=== PATIENT | male | born 2000 | race Asian ===

== ENCOUNTER 2024-03-14 15:19 | Inpatient (IN) ==
--- OUTSIDE RECORDS SUMMARY | 2024-03-14 15:25 | External Medical Summary | Continuity of Care Document ---
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 [address] [place] [address] [place] [id number] [place] [phone] Encounter Diagnosis Depressed mood(Discharge Diagnosis) - 01/10/24 Headache(Discharge Diagnosis) - 01/10/24 OCD (obsessive compulsive disorder)(Discharge Diagnosis) - 01/10/24 Asthma(Discharge Diagnosis) - 01/10/24 Body mass index [BMI] 20.0-20.9, adult(Discharge Diagnosis) - 01/10/24 Fever(Discharge Diagnosis) - 01/10/24 Discharge Disposition: Home or Self Care Attending Physician: MD Parsons Dongsheng Allergies, Adverse Reactions, Alerts Substance Criticality Severity Reaction Reaction Severity Status Cats Active Dogs Active Trees Active Pollen Active Dust Active Grass Active Mold Active Assessment and Plan Extracted from: Title:Office Visit Note Author:MD Parsons Dongsh eng Date:01/10/24 1.Depressed mood STATUS: Chronic stable: Chronic uncontrolled: x Acute uncomplicated: Acute illness with systemic symptoms: Undiagnosed new problems with uncertain prognosis: Chronic illnesses with exacerbation, progression, or side effects of treatment: 1 acute complicated injury: DATA: Review of prior external note(s) from each unique source: Review of the result(s) of each unique test: cmp tsh Ordering of each unique test: Assessment requiring independent historian(s): GOAL: Reduce symptoms PLAN: PHQ9=8; GAD7=7 today.zoloft and prn hydroxyzine - did not work and had sexual side effect too. continue mirtazapine. increasewellbutrinto 150mg XL as ordered. Referred to psychiatry. continue therapy. Call Crisis at [phone] if SI and go to ER.Exercise. 2.Headache STATUS: Chronic stable: x Chronic uncontrolled: Acute uncomplicated: Acute illness with systemic symptoms: Undiagnosed new problems with uncertain prognosis: Chronic illnesses with exacerbation, progression, or side effects of treatment: 1 acute complicated injury: DATA: Review of prior external note(s) from each unique source: Review of the result(s) of each unique test: lyme, esr,vitD Ordering of each unique test: Assessment requiring independent historian(s): GOAL: resolution PLAN: much improved 3.OCD (obsessive compulsive disorder) STATUS: Chronic wellcontrolled DATA: Reviewed labs tsh GOAL: Reduce symptoms PLAN: continue therapy. f/u psychology. Exercise. 4.Asthma STATUS: Chronicwell controlled DATA: Reviewed labs tsh GOAL: Maintain stability PLAN: pulmicort and albuterol - notusing now. Has a dog. prevent URI's. f/u allergy 5.Fever STATUS: Chronic stable: resolved Chronic uncontrolled: Acute uncomplicated: Acute illness with systemic symptoms: Undiagnosed new problems with uncertain prognosis: Chronic illnesses with exacerbation, progression, or side effects of treatment: 1 acute complicated injury: DATA: Review of prior external note(s) from each unique source: Review of the result(s) of each unique test: Ordering of each unique test: Assessment requiring independent historian(s): GOAL:Resolution PLAN: take med daily. continue to monitor Sx call prn.f/u 1 mo Immunizations Given and Recorded Vaccine Date Status Refusal Reason influenza virus vaccine, inactivated 12/23/23 Girish rded Medications benzoyl peroxide 2.5% topical liquid Start: 07/26/22 1:06:00 PM EDT, 1 appl, topical, Daily, Disp# 240 mL, Refills: 2, Pharmacy: [facility] Start Date: 07/26/22 Status: Ordered doxycycline hyclate 50 mg oral capsule Start: 11/18/23 12:24:00 PM EDT, 1 cap, PO, Daily, Disp# 90 cap, Refills: 1, may take with food to minimize abdominal discomfort. avoid sun., Pharmacy: [facility] Start Date: 11/18/23 Stop Date: 3/8/25 Status: Ordered fluticasone 50 mcg/inh nasal spray Start: 06/27/15 3:57:00 PM EDT, 2 spray, each nostril, Daily Start Date: 06/27/15 Status: Ordered mirtazapine 15 mg oral tablet Start: 01/06/24 10:48:00 AM EDT, 1 tab, PO, qhs, Disp# 90 tab, X 90 day, Refills: 1, Stop: 07/04/24 10:48:00 AM EDT, Pharmacy: [facility] Start Date: 01/06/24 Stop Date: 07/04/24 Status: Ordered Proventil HFA 90 mcg/inh MDI Start: 06/27/15 3:57:00 PM EDT, 2 puff, inhaled, qid, PRN: as needed for wheezing Start Date: 06/27/15 Status: Ordered tretinoin 0.05% topical cream Start: 11/18/23 12:25:00 PM EDT, 1 appl, topical, qhs, Disp# 45 g, Refills: 0, Pharmacy: [facility] Start Date: 11/18/23 Status: Ordered triamcinolone 0.1% topical cream Start: 07/26/22 1:06:00 PM EDT, 1 appl, topical, bid, Disp# 80 g, Refills: 2, apply to hands, Pharmacy: [facility] Start Date: 07/26/22 Status: Ordered Wellbutrin XL 150 mg/24 hours oral tablet, extended release Start: 01/10/24 1:19:00 PM EDT, 1 tab, PO, Daily, Disp# 30 tab, Refills: 3, do not crush or chew, Pharmacy: [id number] Start Date: 01/10/24 Stop Date: 05/09/24 Status: Ordered ZyrTEC Start: 06/27/15 3:58:00 PM EDT, 10 mg =, PO, Daily Start Date: 06/27/15 Status: Ordered Mental Status 01/10/24 Barriers to Learning one year None evide nt Mandatory Health Literacy Documentation Yes Health Literacy Communication Barriers N ever Primary Language [place] Citizen Problem List Condition Confirmation Course Effective Dates Status Health St [facility]us Informant Acne vulgaris Confirmed Active Asthma Confirmed Active Elevated bilirubin Confirmed Active Depressed mood Confirmed Active Headache Confirmed Active OCD (obsessive compulsive disorder) Confirmed Active Diagnosis Diagnosis Type Effective Dates Health Status Clinical Service Informant Body mass index [BMI] 20.0-20.9, adult Discharge Diagnosis 01/10/24 Non-Specified Fever Discharge Diagnosis 01/10/24 Non-Specified OCD (obsessive compulsive disorder) Discharge Diagnosis 01/10/24 Non-Specified Asthma Discharge Diagnosis 01/10/24 Non-Specified Headache Discharge Diagnosis 01/10/24 Non-Specified Depressed mood Discharge Diagnosis 01/10/24 Non-Specified Procedures Procedure Date Related Diagnosis Body Site Status US EXAM SCROTUM 1 03/26/22 [facility] ed Tooth extraction, multiple 08/2019 Completed None Completed 1Impression: 1. Normal bilateral testes 2. Trace slightly complex right hydrocele 3 Small left sided varicocele 4 small epididymal head cysts Vital Signs Most recent to oldest [Reference Range]: 1 Height 172 cm (01/10/24 1:04 PM) Patient Weight 60.5 kg (01/10/24 1:04 PM) Body Mass Index 20.45 kg/m2 (01/10/24 1:04 PM) Heart Rate 78 bpm (01/10/24 1:04 PM) Respiratory Rate 18 br/min (01/10/24 1:04 PM) Blood Pressure 138/78mmHg (01/10/24 1:04 PM) Cuff Pulse Pressure 60 mmHg (01/10/24 1:04 PM) Social History Social History Type Response Smoking Status Never smoked cigaret meliza Sex Male Sex Representation Male (finding) FCM Outpt Note * MD Issa, Tl: PERFORM Event Display: FCM Outpt Note Authored Date: Chief Complaint 1 month f/u. History of Present Illness MDD: on meds - but forgets wellbutrin some days.feeling somewhat worse - more depressed. still has passing SI ideation half of the days and didsearching on how to "do it" on internet - once a week. The fear of how it will impact other people stops him from carrying it out. Was better then a bitworse x 2 wks. He had a thought of driving hiscar off the road 2 wks ago related to school stress. OCD: same, "well managed" BELTRAN: rare now. drinking water helps. sleeps 7-8 hrs a night. sleeps well. asthma: well controlled. rare little alcohol. NOMJ or drugs. Had temp 100.4 2 days ago. he felt warm. no other URI Sx. home covid neg. Review of Systems No fever/chills. No respiratory symptoms. No chest pain/shortness of breath. No nausea/vomiting. No abdominal pain. No change with bowels. No urinary symptoms. No rash. No joint pain. Other systems reviewed and are neg. Physical Exam Vitals & Measurements HR:78(Monitored) RR:18 BP:138/78 SpO2:98% HT:172cm WT:60.5kg WT:60.500kg(Dosing) BMI:20.45 PHQ2 Data(Data Documented on:01/10/2024 12:57) Emotional health assessment NEGATIVE PHQ-9 Data(Data Documented on:01/10/2024 12:58) PHQ-9 Severity Score:8 Thoughts that you would be better off or of hurting yourself in some way?More than half the days Depression Risk:Elevated Suicide Risk Screening (Florence/as): [place] Suicide Risk:High Risk General Anxiety Disorder Screening: HAVEN-7 Score:7 HAVEN-7 Problem Severity:Not at all General: No acute distress. Nontoxic. Head:Normocephalic, Atraumatic. Eyes:Pupils are equal, round Normal conjunctiva. Neck:Supple, Non-tender, No thyromegaly Respiratory:Lungs are clear to auscultation, Respirations non-labored, Breath sounds equal AFIA. Cardiovascular:Normal rate, Regular rhythm, No murmur, Rubs, gallops. Gastrointestinal:Soft, Non-tender, Non-distended, Normal bowel sounds. Neurologic:Alert, Oriented, No focal deficits. Psychiatric:Cooperative, Appropriate mood & affect. Assessment/Plan 1.Depressed mood STATUS: Chronic stable: Chronic uncontrolled: x Acute uncomplicated: Acute illness with systemic symptoms: Undiagnosed new problems with uncertain prognosis: Chronic illnesses with exacerbation, progression, or side effects of treatment: 1 acute complicated injury: DATA: Review of prior external note(s) from each unique source: Review of the result(s) of each unique test: cmp tsh Ordering of each unique test: Assessment requiring independent historian(s): GOAL: Reduce symptoms PLAN: PHQ9=8; GAD7=7 today.zoloft and prn hydroxyzine- did not work and had sexual side effect too. continue mirtazapine. increasewellbutrinto 150mg XL as ordered. Referred to psychiatry. continue therapy. Call Crisis at [phone] if SI and go to ER.Exercise. 2.Headache STATUS: Chronic stable: x Chronic uncontrolled: Acute uncomplicated: Acute illness with systemic symptoms: Undiagnosed new problems with uncertain prognosis: Chronic illnesses with exacerbation, progression, or side effects of treatment: 1 acute complicated injury: DATA: Review of prior external note(s) from each unique source: Review of the result(s) of each unique test: lyme, esr,vitD Ordering of each unique test: Assessment requiring independent historian(s): GOAL: resolution PLAN: much improved 3.OCD (obsessive compulsive disorder) STATUS: Chronic wellcontrolled DATA: Reviewed labs tsh GOAL: Reduce symptoms PLAN: continue therapy. f/u psychology. Exercise. 4.Asthma STATUS: Chronicwell controlled DATA: Reviewed labs tsh GOAL: Maintain stability PLAN:pulmicort and albuterol - notusing now. Has a dog. prevent URI's. f/u allergy 5.Fever STATUS: Chronic stable: resolved Chronic uncontrolled: Acute uncomplicated: Acute illness with systemic symptoms: Undiagnosed new problems with uncertain prognosis: Chronic illnesses with exacerbation, progression, or side effects of treatment: 1 acute complicated injury: DATA: Review of prior external note(s) from each unique source: Review of the result(s) of each unique test: Ordering of each unique test: Assessment requiring independent historian(s): GOAL:Resolution PLAN: take med daily. continue to monitor Sx call prn.f/u 1 mo Problem List/Past Medical History Ongoing Acne vulgaris Asthma Depressed mood Elevated bilirubin Headache OCD (obsessive compulsive disorder) Resolved Vertigo Procedure/Surgical History US EXAM SCROTUM| Service Date: 03/26/2022Tooth extraction, multiple| Service Date: 08/2019None Medications albuterol(Proventil HFA 90 mcg/inh MDI), 2 puff, inhaled, qid, PRN benzoyl peroxide topical(benzoyl peroxide 2.5% topical liquid), 1 appl, topical, Daily, 2 refills buPROPion(Wellbutrin XL 150 mg/24 hours oral tablet, extended release), 150 mg= 1 tab, PO, Daily, 3refills cetirizine(ZyrTEC), 10 mg, PO, Daily doxycycline(doxycycline hyclate 50 mg oral capsule), 50 mg= 1 cap, PO, Daily, 1 refills fluticasone nasal(fluticasone 50 mcg/inh nasal spray), 2 spray, each nostril, Daily mirtazapine(mirtazapine 15 mg oral tablet), 15 mg= 1 tab, PO, qhs, 1 refills tretinoin topical(tretinoin 0.05% topical cream), 1 appl, topical, qhs triamcinolone topical(triamcinolone 0.1% topical cream), 1 appl, topical, bid, 2 refills Allergies Cats Dogs Dust Grass Mold Pollen Trees Social History Smoking Status Never smoked cigarettes Alcohol - Denies Alcohol Use Substance Abuse - Denies Substance Abuse Tobacco - Denies Tobacco Use Family History Health Status Family Member(s) Mother: History is unknown Father: History is unknown Immunizations Vaccine Date Status influenza virus vaccine, inactivated 12/23/2023 Recorded Recommendations Health Maintenance Pending(in the next year) Due Adult COVID-19 Vaccination due01/10/24Unknown Frequency Adult Social Determinants of Health Screening due01/10/24Unknown Frequency Adult Tdap/Td Vaccine due01/10/24Unknown Frequency Lipid Screening due01/10/24Unknown Frequency Pneumococcal Vaccine Adults and Adolescents with Chronic Illness due01/10/24One-time only Due In Future Adult Influenza Vaccine not due until09/07/24and every 1year Satisfied(in the past 1 year) Satisfied Adult Influenza Vaccine on12/23/23.Satisfied by CHAYO Sanz Vanessa T Body Mass Index on01/10/24.Satisfied by CHAYO Sanz Vanessa T Depression Follow Up Plan on01/10/24.Satisfied by CHAYO Sanz Vanessa T Electronic Signature on File Electronically Reviewed/Signed by: Tl Parsons MD Author Signature Dt/Tm:01/10/2024 01:35 PM Department of Family Medicine DJ Patient Care team information Care Team Personnel Name: MD Parsons Dongsheng Position: Physician - Family Med Member Role: Primary Care Provider Address: [address] [place] [address] Care Team Related Persons Name: UMBERTO RIVERA Name: MARILIN RIVERA
--- OUTSIDE RECORDS SUMMARY | 2024-03-14 15:25 | External Medical Summary | Continuity of Care Document ---
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 Name Role Phone Tl Parsons Primary Care Physician [phone] [id number] Date[facility]s): 02/12/24 - 02/12/24 [facility] [address] [place] [address] [place] [phone] Encounter Diagnosis Body mass index [BMI] 20.0-20.9, adult(Discharge Diagnosis) - 02/12/24 Depressed mood(Discharge Diagnosis) - 02/12/24 Discharge Disposition: Home or Self Care Attending Physician: MD Parsons Dongsheng Allergies, Adverse Reactions, Alerts Substance Criticality Severity Reaction Reaction Severity Status Cats Active Dogs Active Trees Active Pollen Active Dust Active Grass Active Mold Active Assessment and Plan Extracted from: Title:Office Visit Note Author:MD Parsons Dongsh eng Date:02/12/24 1.Depressed mood STATUS: Chronic stable: Chronic uncontrolled: x Acute uncomplicated: Acute illness with systemic symptoms: Undiagnosed new problems with uncertain prognosis: Chronic illnesses with exacerbation, progression, or side effects of treatment: 1 acute complicated injury: DATA: Review of prior external note(s) from each unique source: Review of the result(s) of each unique test: cmp.cbc.tsh Ordering of each unique test: Assessment requiring independent historian(s): GOAL: Reduce symptoms PLAN: PHQ9=9; GAD7=4 today.Zoloft and prn hydroxyzine - did not work and had sexual side effect too. continue mirtazapine. increasewellbutrin XL to 3000mgas ordered. Referred to psychiatry - advised to call for appt [facility]. continue weekly therapy. Call Crisis at [phone] if SI and go to ER.Exercise. call prn.f/u 1 mo Immunizations Given and Recorded Vaccine Date Status Refusal Reason influenza virus vaccine, inactivated 12/23/23 Girish rded Medications benzoyl peroxide 2.5% topical liquid Start: 07/26/22 1:06:00 PM EDT, 1 appl, topical, Daily, Disp# 240 mL, Refills: 2, Pharmacy: [facility] Start Date: 07/26/22 Status: Ordered doxycycline hyclate 50 mg oral capsule Start: 11/18/23 12:24:00 PM EDT, 1 cap, PO, Daily, Disp# 90 cap, Refills: 1, may take with food to minimize abdominal discomfort. avoid sun., Pharmacy: [facility] Start Date: 11/18/23 Stop Date: 05/16/24 Status: Ordered fluticasone 50 mcg/inh nasal spray Start: 06/27/15 3:57:00 PM EDT, 2 spray, each nostril, Daily Start Date: 06/27/15 Status: Ordered mirtazapine 15 mg oral tablet Start: 01/06/24 10:48:00 AM EDT, 1 tab, PO, qhs, Disp# 90 tab, X 90 day, Refills: 1, Stop: 07/04/24 10:48:00 AM EDT, Pharmacy: [facility] Start Date: 01/06/24 Stop Date: 07/04/24 Status: Ordered Proventil HFA 90 mcg/inh MDI Start: 06/27/15 3:57:00 PM EDT, 2 puff, inhaled, qid, PRN: as needed for wheezing Start Date: 06/27/15 Status: Ordered tretinoin 0.05% topical cream Start: 11/18/23 12:25:00 PM EDT, 1 appl, topical, qhs, Disp# 45 g, Refills: 0, Pharmacy: [facility] Start Date: 11/18/23 Status: Ordered triamcinolone 0.1% topical cream Start: 07/26/22 1:06:00 PM EDT, 1 appl, topical, bid, Disp# 80 g, Refills: 2, apply to hands, Pharmacy: [facility] Start Date: 07/26/22 Status: Ordered Wellbutrin XL 300 mg/24 hours oral tablet, extended release Start: 02/12/24 10:33:00 AM EST, 1 tab, PO, Daily, Disp# 30 tab, Refills: 4, Pharmacy: [id number] Start Date: 02/12/24 Stop Date: 07/11/24 Status: Ordered ZyrTEC Start: 06/27/15 3:58:00 PM EDT, 10 mg =, PO, Daily Start Date: 06/27/15 Status: Ordered Mental Status 02/12/24 Barriers to Learning one year None evide nt Problem List Condition Confirmation Course Effective Dates Status Health St atus Informant Acne vulgaris Confirmed Active Asthma Confirmed Active Elevated bilirubin Confirmed Active Depressed mood Confirmed Active Headache Confirmed Active OCD (obsessive compulsive disorder) Confirmed Active Diagnosis Diagnosis Type Effective Dates Health Status Cl inical Service Informant Depressed mood Discharge Diagnosis 02/12/24 Non-Specified Body mass index [BMI] 20.0-20.9, adult Discharge Diagnosis 02/12/24 Non-Specified Procedures Procedure Date Related Diagnosis Body Site Status US EXAM SCROTUM 1 03/26/22 Complet ed Tooth extraction, multiple 08/2019 Completed None Completed 1Impression: 1. Normal bilateral testes 2. Trace slightly complex right hydrocele 3 Small left sided varicocele 4 small epididymal head cysts Vital Signs Most recent to oldest [Reference Range]: 1 Height 172.5 cm (02/12/24 10:09 AM) Patient Weight 60.8 kg (02/12/24 10:09 AM) Body Mass Index 20.43 kg/m2 (02/12/24 10:09 AM) Temperature [36.5-37.9 DegC] 36.8 DegC (02/12/24 10:09 AM) Heart Rate 81 bpm (02/12/24 10:09 AM) Respiratory Rate 16 br/min (02/12/24 10:09 AM) Blood Pressure 122/74mmHg (02/12/24 10:09 AM) Social History Social History Type Response Smoking Status Never smoked cigaret meliza Sex Male Sex Representation Male (finding) FCM Outpt Note * MD Issa, Tl: PERFORM Event Display: FCM Outpt Note Authored Date: Chief Complaint med check ( psych) History of Present Illness MDD: on meds.feeling moredepressed. no change with sleep and anxiety. He keeps forgetting to call for psychiatry appt.no HI. Increased SI frequency - daily. 20min to a couple of hours a day with SI. No plan. no drugs. rare alcohol 5 times a wk exercise. Review of Systems No fever/chills. No headache. No respiratory symptoms. No chest pain/shortness of breath. No nausea/vomiting. No abdominal pain. No change with bowels. No urinary symptoms. No rash. No joint pain.Other systems reviewed and are neg. Physical Exam Vitals & Measurements T:36.8C HR:81(Monitored) RR:16 BP:122/74 SpO2:99% HT:172.5cm WT:60.8kg WT:60.800kg(Dosing) BMI:20.43 PHQ2 Data(Data Documented on:02/12/2024 10:11) Emotional health assessment POSITIVE PHQ-9 Data(Data Documented on:02/12/2024 10:12) PHQ-9 Severity Score:9 Thoughts that you would be better off or of hurting yourself in some way?Nearly every day Depression Risk:Elevated General Anxiety Disorder Screening: HAVEN-7 Score:4 HAVEN-7 Problem Severity:Somewhat Difficult General: No acute distress. Nontoxic. Head:Normocephalic, Atraumatic. Neck:Supple, Non-tender, No thyromegaly Respiratory:Lungs are clear [...] of the result(s) of each unique test: cmp.cbc.tsh Ordering of each unique test: Assessment requiring independent historian(s): GOAL: Reduce symptoms PLAN: PHQ9=9; GAD7=4 today.Zoloft and prn hydroxyzine- did not work and had sexual side effect too. continue mirtazapine. increasewellbutrin XL to 3000mgas ordered. Referred to psychiatry - advised to call for appt [facility]. continue weekly therapy. Call Crisis at [phone] if SI and go to ER.Exercise. call prn.f/u 1 mo Problem List/Past Medical History Ongoing Acne vulgaris Asthma Depressed mood Elevated bilirubin Headache OCD (obsessive compulsive disorder) Resolved Vertigo Procedure/Surgical History US EXAM SCROTUM| Service Date: 03/26/2022Tooth extraction, multiple| Service Date: 08/2019None Medications albuterol(Proventil HFA 90 mcg/inh MDI), 2 puff, inhaled, qid, PRN benzoyl peroxide topical(benzoyl peroxide 2.5% topical liquid), 1 appl, topical, Daily, 2 refills buPROPion(Wellbutrin XL 300 mg/24 hours oral tablet, extended release), 300 mg= 1 tab, PO, Daily, 4refills cetirizine(ZyrTEC), 10 mg, PO, Daily doxycycline(doxycycline hyclate [...] the next year) Due Adult COVID-19 Vaccination due02/12/24Unknown Frequency Adult Social Determinants of Health Screening due02/12/24Unknown Frequency Adult Tdap/Td Vaccine due02/12/24Unknown Frequency Lipid Screening due02/12/24Unknown Frequency Pneumococcal Vaccine Adults and Adolescents with Chronic Illness due02/12/24One-time only Due In Future Adult Influenza Vaccine not due until09/07/24and every 1year Satisfied(in the past 1 year) Satisfied Adult Influenza Vaccine on12/23/23.Satisfied by CHAYO Sanz Vanessa T Body Mass Index on02/12/24.Satisfied by CHAYO Mariscal Kathryn Depression Follow Up Plan on02/12/24.Satisfied by CHAYO Mariscal Kathryn Electronic Signature on File Electronically Reviewed/Signed by: Tl Parsons MD Author Signature Dt/Tm:02/12/2024 10:41 AM Department of Family Medicine DJ Patient Care team information Care Team Personnel Name: MD Parsons Dongsheng Position: Physician - Family Med Member Role: Primary Care Provider Address: [address] [place] [address] [place] Care Team Related Persons Name: UMBERTO RIVERA Name: MARILIN RIVERA"
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
[2024-03-14 16:18] LABS: Appearance Urine Clear (Clear); Bilirubin Urine Negative (Negative); Blood Urine Negative (Negative); Color Urine Yellow; Glucose Urine UA Negative (Negative); Ketones Urine Negative (Negative); Leukocyte Esterase Urine Negative (Negative); Nitrite Urine Negative (Negative); Protein Urine Negative (Negative); Specific Gravity Urine 1.023 (1.000-1.030); Urobilinogen Urine Negative (Negative)
[2024-03-14 16:42] LABS: Basophils # (auto) 0.05 K/uL (0.00-0.20); Basophils % (auto) 0.9 %; Eosinophils # (auto) 0.17 K/uL (0.00-0.50); Hematocrit (blood only) 42.8 % (42.0-52.0); Hemoglobin 15.2 g/dl (14.0-18.0); Immature Granulocytes # (auto) 0.02 K/uL (0.01-0.20); Immature Granulocytes % (auto) 0.4 %; Lymphocytes # (auto) 1.39 K/uL (1.20-3.40); Lymphocytes % (auto) 24.9 %; Mean Corpuscular Hemoglobin 32.2 pg (25.0-34.0); Mean Corpuscular Hgb Conc 35.5 g/dL (32.0-36.0); Mean Corpuscular Volume 90.7 fL (80.0-100.0); Mean Platelet Volume 10.1 fL (9.4-12.4); Monocytes # (auto) 0.29 K/uL (0.11-0.59); Monocytes % (auto) 5.2 %; Neutrophils # (auto) 3.67 K/uL (1.40-6.50); Neutrophils % (auto) 65.6 %; Platelet Count 293 K/uL (130-400); RDW Coefficient of Variation 11.6 % (11.5-14.5); RDW Standard Deviation 38.3 fL (36.4-46.3); Red Blood Count 4.72 M/uL (4.70-6.10); White Blood Count 5.59 K/ul (4.8-10.8)
--- NOTE | 2024-03-14 16:56 | Emergency Department Note ---
Impression & Plan Suicidal ideations, Depression ED Provider Note NAME: KALEB RIVERA AGE: 23 SEX: M : 2000 ARRIVES VIA: Walk-In INFORMANT: Patient ED PROVIDER(S): Robel Good DO CHIEF COMPLAINT: Suicidal ideations HPI: Patient is a 23-year-old male who presents to the ER with a past medical history of depression which started this summer. Patient notes that within the past 1 to 2 months patient has been having suicidal thoughts. Patient has, with several plans on how to kill himself which include driving a car offroad and crashing it, suffocation, drowning and stabbing himself. He told this to a friend who encouraged him to discuss this with family and he did and consequently brought him in here today. Patient denies any auditory or visual hallucinations. Denies any belly pain, nausea, vomiting or diarrhea. No dysuria, urgency or frequency. No upper respiratory symptoms. ADDITIONAL HISTORY OBTAINED: Per HPI Chronic Medical/Social Conditions Affecting Care: Per HPI PAST MEDICAL HISTORY:See Below PAST SURGICAL HISTORY:See Below FAMILY HISTORY:See Below SOCIAL HISTORY:See Below HOME MEDICATIONS:See Below ALLERGIES:See Below VITALS:See Below PHYSICAL EXAMINATION: GENERAL: Sitting up in bed, alert, well appearing, well nourished, no distress, non-toxic EYE EXAM: normal conjunctiva. OROPHARYNX: mucous membranes are moist LUNGS: Clear to auscultation. Normal chest wall mechanics HEART: no murmurs, S1 normal and S2 normal ABDOMEN: abdomen soft, non-tender, normo-active bowel sounds, no masses, no rebound or guarding. UPPER EXTREMITIES: upper extremities are grossly normal. LOWER EXTREMITIES: No pitting edema. NEURO EXAM: Normal sensorium, cranial nerves II-XII grossly intact, normal speech, no gross weakness of arms, no gross weakness of legs. PSYCH: Admits to suicidal ideations with multiple plans. MEDICAL DECISION MAKING: Patient is a 23-year-old male who presents ER with multiple plans to kill himself and he notes that he wants to do this prior to going back to school. He was brought in by family. He is willing to come in on 201. Labs were obtained and showed no significant leukocytosis or anemia. BMP along with LFTs bilirubin was unremarkable. UA was clean. Urine tox was positive for ecstasy. Alcohol was negative. COVID was negative. Discussed with our psychiatric care managers who made the referral to [facility] on 201 for admission for suicidal ideations with a plan. Currently awaiting evaluation by Tamir Johnson. Pt was signed out to Dr. Briggs pending evaluation by Tamir johnson for admission on 201 for SI with multiple plans. Consults/Care Managements Discussions: Per MDM Triage Nursing notes reviewed. Limited review of prior medical records performed Vital Signs: reviewed and remarkable for htn Differential diagnosis: Mood disorder, infection, hypoglycemia, electrolyte abnormalities, cardiac sources, intracerebral event, toxicologic, trauma, neurologic, as well as other pathologies. ER treatment provided: See below Diagnostics interpreted by me include EKG and cardiac monitoring as listed below: -ECG: none -Laboratory studies:Interpreted by me as stated above in MDM and shown below. Imaging studies: Xrays: As interpreted by me:none CTs show: none Procedures:none Critical Care: None Past Med/Surg History Problem List (Updated 03/14/24 @ 17:00 by Robel Good DO) Depression (Acute) Suicidal ideations (Acute) Acne Sebaceous cyst of right axilla Medical History Acne Allergic rhinitis Asthma Surgical History No history of previous surgery Social History Smoking Status: Never smoker Hx Alcohol Use: No Hx Substance Use: No Preferred Language: Vietnamese Visual Impairment: No Limitations Hearing Ability: Normal marital status: Single Current Living Situation: Family Current Living Situation Comment: Mom, Dad and a hypo-allergetic dog Feels Safe at Home: Yes Childhood Exposure to Second-Hand Smoke: No Dental Care, Regularly: Yes Seatbelt Use: always Sunscreen Use: Yes Gender Identity: Male Allergies Allergies Allergy/AdvReac Type Severity Reaction Status Date / Time animal dander Allergy Severe Verified 12/04/23 10:54 grass pollen Allergy Severe Verified 12/04/23 10:54 mold Allergy Severe Verified 12/04/23 10:54 tree and shrub pollen Allergy Severe Verified 12/04/23 10:54 Home Meds Home Medications Medication Instructions Recorded Confirmed bupropion HCl 300 mg 24 hr tablet, 300 mg PO DAILY 03/14/24 03/14/24 extended release cetirizine 10 mg capsule 10 mg PO DAILY PRN Allergy Symptoms 03/14/24 03/14/24 doxycycline hyclate 50 mg capsule 50 mg PO DAILY 03/14/24 03/14/24 mirtazapine 15 mg tablet 15 mg PO HS 03/14/24 03/14/24 tretinoin 0.05 % topical cream 1 applic topical DAILY 03/14/24 03/14/24 Results & Data (ED) Vital Signs Vital Signs - 24 hr 03/14/24 15:32 03/14/24 17:30 Temperature 36.5 C Temperature Source Temporal Artery Scan Pulse Rate 96 H Pulse Rate [Finger] 81 Pulse Rhythm Regular Pulse Strength Normal Respiratory Rate 18 16 Respiratory Effort / Characteristics Non-Labored Spontaneous Non-Labored Spontaneous Respiratory Depth Normal Normal Respiratory Pattern Regular Blood Pressure 151/82 H Blood Pressure [Left Arm] 137/79 Blood Pressure Mean 105 Blood Pressure Mean [Left Arm] 98 Pulse Oximetry 99 Oxygen Delivery Method Room Air Sepsis New/Unexplained Change in Mental Status N/A Sepsis Action Taken by Nursing No Action Required Laboratory Data 03/14/24 16:18 03/14/24 16:18 Lab Results 03/14/24 03/14/24 03/14/24 Range/Units 16:10 16:18 Unknown WBC 5.59 (4.8-10.8) K/ul RBC 4.72 (4.70-6.10) M/uL Hgb 15.2 (14.0-18.0) g/dl Hct 42.8 (42.0-52.0) % MCV 90.7 (80.0-100.0) fL MCH 32.2 (25.0-34.0) pg MCHC 35.5 (32.0-36.0) g/dL RDW Std Deviation 38.3 (36.4-46.3) fL RDW Coeff of Sharif 11.6 (11.5-14.5) % Plt Count 293 (130-400) K/uL MPV 10.1 (9.4-12.4) fL Immature Gran % (Auto) 0.4 % Neut % (Auto) 65.6 % Lymph % (Auto) 24.9 % [place] % (Auto) 5.2 % Eos % (Auto) 3.0 % Baso % (Auto) 0.9 % Neut # (Auto) 3.67 (1.40-6.50) K/uL Lymph # (Auto) 1.39 (1.20-3.40) K/uL [place] # (Auto) 0.29 (0.11-0.59) K/uL Eos # (Auto) 0.17 (0.00-0.50) K/uL Baso # (Auto) 0.05 (0.00-0.20) K/uL Immature Gran # (Auto) 0.02 (0.01-0.20) K/uL Sodium 137 (136-145) mmol/L Potassium 4.1 (3.5-5.1) mmol/L Chloride 103 (98-107) mmol/L Carbon Dioxide 28 (21-32) mmol/L Anion Gap 6 (3-11) BUN 22 (6-23) mg/dl Creatinine 0.82 (0.6-1.4) mg/dl Est Cr Clr Drug Dosing 121.7 ml/min eGFR 127.37 BUN/Creatinine Ratio 26.8 H (10-20) Glucose 127 H (70-99(Fasting)) mg/dl Calcium 9.2 (8.6-10.3) mg/dl Total Bilirubin 0.7 (0.2-1.0) mg/dl AST 15 (13-39) U/L ALT 11 (7-52) U/L Alkaline Phosphatase 75 (34-104) U/L Total Protein 7.2 (6.0-8.3) gm/dl Albumin 4.6 (3.4-5.0) gm/dl Globulin 2.6 (2.5-4.0) gm/dl Albumin/Globulin Ratio 1.8 (0.9-2) TSH 0.912 (0.300-4.500) uIu/ml Urine Color Yellow Urine Appearance Clear (Clear) Urine pH 7.0 (4.5-7.5) Ur Specific [place] 1.023 (1.000-1.030) Urine Protein Negative (Negative) Urine Glucose (UA) Negative (Negative) Urine Ketones Negative (Negative) Urine Blood Negative (Negative) Urine Nitrite Negative (Negative) Urine Bilirubin Negative (Negative) Urine Urobilinogen Negative (Negative) Ur Leukocyte Esterase Negative (Negative) Salicylates < 3.0 L (3.0-30) mg/dl Urine Opiates Screen Neg (Neg) Ur Methadone, Qual Neg (Neg) Urine Fentanyl Screen Neg (Neg) Acetaminophen < 3 L (10-30) ug/ml Urine Barbiturates Neg (Neg) Ur Phencyclidine (PCP) Neg (Neg) U Amphetamin/Meth Scrn Neg (Neg) MDMA (Ecstasy) Screen Pos H (Neg) U Benzodiazepines Scrn Neg (Neg) Ur Cocaine Metabolite Neg (Neg) U Marijuana (THC) Screen Neg (Neg) Ethyl Alcohol mg/dL < 10.0 (<10.0) mg/dl SARS-CoV-2, RNA, NAAT NEGATIVE (NEGATIVE) Discharge Plan Visit Data Chief Complaint: Mental Health Evaluation Stated Complaint: DEPRESSION ED Provider: Gladys Briggs Discharge Problem: Suicidal ideations, Depression Forms Stand Alone Forms: [facility], Suicide Prevention Resources Prescriptions Prescriptions: No Action doxycycline hyclate 50 mg capsule 50 mg PO DAILY tretinoin 0.05 % cream 1 applic TOPICAL DAILY mirtazapine 15 mg tablet 15 mg PO HS bupropion HCl 300 mg tablet extended release 24 hr 300 mg PO DAILY cetirizine 10 mg Capsule 10 mg PO DAILY PRN (Reason: Allergy Symptoms) Referrals Referrals: Tl Parsons [Primary Care Provider] - Discharge Problem: Depression Qualifiers: Depression Type: unspecified Qualified Code(s): F32.A - Depression, unspecified
[2024-03-14 16:57] LABS: Albumin Globulin Ratio 1.8 (0.9-2); Albumin Level 4.6 gm/dl (3.4-5.0); BUN Creatinine Ratio 26.8 (10-20); Bilirubin,Total 0.7 mg/dl (0.2-1.0); Calcium 9.2 mg/dl (8.6-10.3); Creatinine Clr Calc Pharmacy 121.7 ml/min; Globulin 2.6 gm/dl (2.5-4.0); Potassium 4.1 mmol/L (3.5-5.1); Total Protein 7.2 gm/dl (6.0-8.3)
[2024-03-14 17:06] LABS: Amphetamines+Metham, Urine Neg (Neg); Barbiturates, Urine Neg (Neg); Benzodiazepine, Urine Neg (Neg); Cocaine, Urine Neg (Neg); Fentanyl, Urine Neg (Neg); MDMA (Ecstacy), Urine Pos (Neg); Marijuana, Urine Neg (Neg); Methadone, Urine Neg (Neg); Opiate, Urine Neg (Neg); Phencyclidine, Urine Neg (Neg)
[2024-03-14 17:07] LABS: Acetaminophen < 3 ug/ml (10-30); Salicylate < 3.0 mg/dl (3.0-30)
[2024-03-14 17:11] LABS: Thyroid Stimulating Hormone 0.912 uIu/ml (0.300-4.500)
--- NOTE | 2024-03-14 19:15 | Emergency Department Note ---
ED Visit Note Date and Time: 03/14/20241914 Interval History: Sign out received from Dr. Good who reviewed details of the encounter. Patient was pending evaluation by staff from [facility] Summary: patient was accepted to [facility] on a voluntary admission .
[2024-03-14] MEDS ORDERED: ALUMINUM/MAGNESIUM SUSP 30 ML UDC PO PRN (20:46)
[2024-03-14] MEDS ORDERED: MAGNESIUM HYDROXIDE SUSP 30 ML UDC PO PRN (20:46)
[2024-03-14] MEDS ORDERED: ACETAMINOPHEN 325 MG TAB PO PRN (20:46)
[2024-03-14] MEDS ORDERED: BISMUTH SUBSALICYLATE 262 MG CHEW PO PRN (20:46)
[2024-03-14] MEDS ORDERED: SODIUM CHLORIDE 0.65% NA SOLN 45 ML (OCEAN) PRN (20:46)
[2024-03-14] MEDS ORDERED: hydrOXYzine HCl 25 MG TAB PO PRN ×2 (20:46)
[2024-03-14] MEDS: MIRTAZAPINE TAB 15 MG TAB PO SCH (22:44)
[2024-03-15 06:30] VITALS: RESP 16
--- NOTE | 2024-03-15 09:22 | History & Physical ---
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 Diagnostically consistent with major depressive disorder vs atypical depression as well as generalized anxiety disorder, OCD and ASD. Also wonder about possibility for cluster B traits vs BPD component. Discussed medication treatment options in detail including SSRI, SNRI, antipsychotics, clonidine,guanfacine. Discussed risks, benefits and alternatives. Patient would like to start and consented to Abilify for depression augmentation and off label use for OCD and anxiety. Reviewed side effects including but not limited to: movement (TD, NMS), cardiac (QTc prolongation), and metabolic (stroke, insulin resistance) and necessity for fasting lipid and glucose labwork and AIMS done with score of 0. He wants to continue with mirtazapine, reviewed side effects including but not limited to sedation/increased appetite, black box warning for SI. Discontinuation of Wellb utrin due to concern this could activating/worsening anxiety/OCD. MNPR-due to difficulty with interruption with routines, significant discomfort and panic attacks with transitions/changes Overall I spent a total of 75 minutes for this admission including review of chart records, review of labwork, direct evaluation of the patient, counseling the patient, ordering medication, risk assessment, discussion with the psychiatric liason RN and documentation in the electronic health record. (1) Depression: Depression Type: unspecified Qualified Code(s): F32.A - Depression, unspecified (2) Suicidal ideations: (3) Generalized anxiety disorder with panic attacks: (4) Autism spectrum disorder: (5) Obsessive compulsive disorder: Plan 03/15/2024: The patient was admitted to the [facility] ([facility] inpatient mental health unit) on q15 min checks (behavioral with suicide precautions) for safety. The patient will participate in group, recreational, and milieu therapies and will be offered additional individual and family sessions as clinically appropriate. -Medications: * Continue mirtazapine 15mg HS * Start abilify 2.5mg daily * Discontinue Wellbutrin * Vistaril prn for anxiety -Labwork: * HBA1c * Fasting Lipid Panel * Vit D * Vit B12 -Hollis BPD screening Inventory Assets Strengths: supportive relationships, willing to get treatment Needs: safety and stabilization, medication adjustment, additional coping skills, increased outpatient services Suicide Risk Level Suicide Risk Level: High-Moderate (q15 min suicide checks) (SI with plan and intent prior to hospitalization but denies plan for hospital,feels safe in the hospital, feels able to ask for support) Risk Factors Assessment Male: Yes : No Do You Have Access To A Gun?: No Health Problems: No Mental Health Diagnoses: Yes Substance Use Disorders: No Previous Attempt: No Previous Psychiatric Hospitalization: No Hopelessness: Yes Protective Factors Assessment Employed: Yes Stable Relationships: Yes Supportive Family: Yes Good Rapport with Provider: Yes (therapist and PCP) Psychiatric History Identifying Data KALEB RIVERA is a 23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 Chief Complaint "The one thing I had control over I've now given it to other people". History of Present Illness Miky presents for psychiatric admission for worsening depression and SI with multiple plans in the context of multiple psychosocial stressors including academics, unrequited feelings for his best friend, grief over the loss of this friendship, feeling excluded from his friend group, and experiencing barriers and obstacles within the LGBTQ community [place]. His depression has been "snowballing" and he started to "contemplate suicide and formulate a plan to do it but I figured it would be sometime around now and the beginning of the semester". He was visiting a friend a few days ago and shared his suicidal plan and his friend encouraged him to share this with his parents. Yesterday he was seen at the local Crisis center and they recommended he come to the hospital. He reports that his depression worsened a few months ago, leading to suicidal ideation and the formulation of a plan. He states that his suicidal thoughts were very intense yesterday morning after disclosing his potential plans, as he felt he had lost control over the one thing he had control over. Today, he reports his suicidal thoughts are a little less intense compared to yesterday. He identifies the onset of his depression in mid-to-late summer when his best friend got a girlfriend, when he'd had romantic feelings for him. Losing his ability to rely on his friend as his primary support also added to his stress/grief process and seemed to set off the depression. He was then coping a little better but new stressors including feeling excluded by his friends, COVID infection and then he struggled to manage other factors including academic stress. He can also get anxiety about his friends appearance changing due to his sensory anxieties which distracts from his ability to be in the moment. Additi onally he feels impact of having multiple marginalized identities including LGBTQ and racial/ethnic minority and challenges this presents in meeting romantic partners. He endorses depressive symptoms including anhedonia (struggling to enjoy social situations), decreased motivation, self-guilt, hopelessness. He describes his depression as sometimes feeling like high-functioning depression, with the ability to still engage in academic work and social situations if he pushes himself and that he had been able to do this somewhat due to coping with distress by thinking about his plan and intent to soon. SI has been occurring over the last few months but intensifying to the point of having an intent to not live past "the first quarter of 2024". He hadn't finalized a method/plan because he wanted to avoid a means that could "fail" or cause pain. He had been researching means including helium asphyxiation, self-drowning, stabbing himself, jumping from a high place or driving his car off a hill or self poisoning (didn't seem as appealing because "there were too many factors that could go wrong or be very uncomfortable") into a tree (not into anyone else, would not have wanted to hurt anyone else). He also endorses symptoms of anxiety including generalized worries, shakiness, easily overwhelmed and panic attacks especially when a friend's appearance has changed/transitions that he fears may occur in the future. He reports experiencing sensory anxiety related to his Asperger's and sensory integration disorder, which has intensified and negatively impacted his ability to enjoy social situations. He notes that SI and having a plan and intent as an "escape plan" impacted some of his ability to socialize and rally recently as he wanted to leave his friends and family with "momentos" and good memories. He notes the idea of dying brought him comfort and aishwarya because "it's a way to stop the pain and never have anxiety again or worry again". He notes that "thinking about suicide was at times bringing about aishwarya and the depression tells me maybe you don't want help". He identifies that "I lack a lot of the concrete coping mechanisms". He endorses OCD symptoms including borderline cases of delusions related to his OCD. He is currently prescribed psychiatric medications of Wellbutrin XL 300mg daily (has been on this at higher dose for about a month, overall for three months; seems to help with mood at times "lower lows but also higher highs" and seems to emplify the emotions he has) and mirtazapine 15mg HS (since November, hard to say if it's helping or not but it has been helping him sleep). Psychiatric ROS notable for no current nor history of symptoms of kaiser, PTSD, nor eating disorder. Notes at times his sensory sensitivities have felt like almost a delusion at times and sometimes "borderline" psychosis from exacerbation of his OCD fixation and beliefs such as worrying he's hit something in his car. History of self-harm by scratching himself and continues to punching himself and been doing this several times per week. He describes feeling that he's recently been in a "dissociative state" with "nothing or empty" emotions with the exception of anxiety and struggles to be present with friends and this brings about self-guilt. He reports a high sex drive that interferes with his sleep. Target symptoms identified as: -anxiety -OCD -depression Past Psychiatric History Current Psychiatric Diagnosis: Aspergers, OCD, Anxiety, Depression Outpatient Services: therapy with [facility], PCP manages his psychiatric medications Previous Psych Admissions: none Do You Have Access To A Gun?: No History of Previous Suicide Attempt: No Past Medication Trials: -sertraline 50mg but had sexual dysfunction which made it intolerable -Vistaril Past Head Trauma/Neuro History History of Concussion/Seizure: No Allergies Allergy/AdvReac Type Severity Reaction Status Date / Time animal dander Allergy Severe Verified 12/04/23 10:54 grass pollen Allergy Severe Verified 12/04/23 10:54 mold Allergy Severe Verified 12/04/23 10:54 tree and shrub pollen Allergy Severe Verified 12/04/23 10:54 Home Medications Medication Instructions Recorded Confirmed Type bupropion HCl 300 mg 24 hr tablet, 300 mg PO DAILY 03/14/24 03/14/24 History extended release cetirizine 10 mg capsule 10 mg PO DAILY PRN Allergy Symptoms 03/14/24 03/14/24 History doxycycline hyclate 50 mg capsule 50 mg PO DAILY 03/14/24 03/14/24 History mirtazapine 15 mg tablet 15 mg PO HS 03/14/24 03/14/24 History tretinoin 0.05 % topical cream 1 applic topical DAILY 03/14/24 03/14/24 History Family History Family History of: Doesn't Know Family Mental Health History Comment: Was adopted at 5.5 months Alcohol History Hx of Alcohol Use Over the Past 12 Months: No AUDIT Total Score: 3 Smoking Use Smoking Status: Never smoker Substance History Hx of Prescription Med Misuse Over the Past 12 Months: No Hx of Over the Counter Med Misuse Over the Past 12 Months: No Hx of Inhalent Misuse Over the Past 12 Months: No Hx of Organic Substance Use Over the Past 12 Months: No Hx of Illegal Substances/Street Drug Use Over Past 12 Months: No Problems as a Result of Past Substance Use: None Identified Personal History Living Arrangements: Home Highest Grade Completed: Graduate School ([employer]) Employment Status: Student Marital Status: Single Beliefs That Will Affect Care: None Current Legal Problems: No Hx Legal Problems: No Hx Traumatic Life Events: Yes Patient History Medical History Acne Allergic rhinitis Asthma Surgical History No history of previous surgery Social History Smoking Status: Never smoker Hx Alcohol Use: No Hx Substance Use: No Preferred Language: Mohawk Communication Ability: Effective Visual Impairment: No Limitations Hearing Ability: Normal Mail Superintendent Required: No Beliefs That Will Affect Care: None marital status: Single Current Living Situation: Family Current Living Situation Comment: Mom, Dad and a hypo-allergetic dog Feels Safe at Home: Yes Childhood Exposure to Second-Hand Smoke: No Dental Care, Regularly: Yes Seatbelt Use: always Sunscreen Use: Yes Gender Identity: Male Assistive Devices: Glasses Review of Systems Review of Systems: All systems reviewed & are unremarkable except as noted in HPI & below (some pain of middle finger but lessening) Physical Exam Psychiatric: Orientation: alert and oriented x 3 Apperance: appropriately dressed and appropriately groomed Eye Contact: good eye contact Motor Behavior: no abnormal motor movements Speech: normal rate/rhythm/volume of speech Affect: + constricted affect Mood: + depressed mood and + anxious mood Thought Process: + circumstantial thought process (expansive) Thought Content: reality based without delusions Suicidal Thoughts: denies suicidal intent (none for hospital, had set a timeline for when he wanted to ); + reports suicidal thoughts and + reports suicidal plan (none for hospital, multiple for outside hospital) Homicidal Thoughts: denies homicidal thoughts Hallucinations: no auditory hallucinations and no visual hallucinations Cognition: recent memory grossly intact, remote memory grossly intact, attention grossly intact and language grossly intact Estimated Intelligence: consistent with education level Insight: + fair insight Judgment: + limited judgement Vital Signs (Past 24 Hours): Last Vital Signs Temp 36.6 C 03/15/24 06:00 Pulse 93 H 03/15/24 06:00 Resp 16 03/15/24 06:00 BP 123/68 03/15/24 06:00 Pulse Ox 97 03/15/24 06:00 O2 Del Method Room Air 03/15/24 06:00 Exam Statement: A physical exam was performed in the ED by Dr. Good for the purposes of medical clearance. I accept that physical as correct and adequate for the purposes of the inpatient physical exam. Results & Data ([facility]) Laboratory Results Laboratory Results - last 24 hr 03/14/24 03/14/24 03/14/24 16:10 16:18 Unknown WBC 5.59 RBC 4.72 Hgb 15.2 Hct 42.8 MCV 90.7 MCH 32.2 MCHC 35.5 RDW Std Deviation 38.3 RDW Coeff of Sharif 11.6 Plt Count 293 MPV 10.1 Immature Gran % (Auto) 0.4 Neut % (Auto) 65.6 Lymph % (Auto) 24.9 Payne % (Auto) 5.2 Eos % (Auto) 3.0 Baso % (Auto) 0.9 Neut # (Auto) 3.67 Lymph # (Auto) 1.39 Payne # (Auto) 0.29 Eos # (Auto) 0.17 Baso # (Auto) 0.05 Immature Gran # (Auto) 0.02 Sodium 137 Potassium 4.1 Chloride 103 Carbon Dioxide 28 Anion Gap 6 BUN 22 Creatinine 0.82 Est Cr Clr Drug Dosing 121.7 eGFR 127.37 BUN/Creatinine Ratio 26.8 H Glucose 127 H Calcium 9.2 Total Bilirubin 0.7 AST 15 ALT 11 Alkaline Phosphatase 75 Total Protein 7.2 Albumin 4.6 Globulin 2.6 Albumin/Globulin Ratio 1.8 TSH 0.912 Urine Color Yellow Urine Appearance Clear Urine pH 7.0 Ur Specific [place] 1.023 Urine Protein Negative Urine Glucose (UA) Negative Urine Ketones Negative Urine Blood Negative Urine Nitrite Negative Urine Bilirubin Negative Urine Urobilinogen Negative Ur Leukocyte Esterase Negative Salicylates < 3.0 L Urine Opiates Screen Neg Ur Methadone, Qual Neg Urine Fentanyl Screen Neg Acetaminophen < 3 L Urine Barbiturates Neg Ur Phencyclidine (PCP) Neg U Amphetamin/Meth Scrn Neg Urine MDEA Pending MDMA (Ecstasy) Screen Pos H MDMA Pending Urine MDMA Pending U Benzodiazepines Scrn Neg Ur Cocaine Metabolite Neg U Marijuana (THC) Screen Neg Ethyl Alcohol mg/dL < 10.0 SARS-CoV-2, RNA, NAAT NEGATIVE Current Inpatient Medications Current Inpatient Medications: Current Inpatient Medications Acetaminophen (Acetaminophen 325 Mg Tab) 650 mg PO Q4H PRN PRN Reason: Headache or Minor Fever Stop: 04/13/24 20:45 Al Hydrox/Mg Hydrox/Simethicone (Aluminum/Magnesium Susp 30 Ml Udc) 30 ml PO Q4H PRN PRN Reason: GI Upset Stop: 04/13/24 20:45 Bismuth Subsalicylate (Bismuth Subsalicylate 262 Mg Chew) 2 tab PO Q30M PRN PRN Reason: Loose Stool/Diarrhea Stop: 04/13/24 20:45 Hydroxyzine HCl (Hydroxyzine Hcl 25 Mg Tab) 50 mg PO HSZ PRN PRN Reason: Insomnia Stop: 04/13/24 20:45 Hydroxyzine HCl (Hydroxyzine Hcl 25 Mg Tab) 25 mg PO Q4H PRN PRN Reason: Anxiety Stop: 04/13/24 20:45 Magnesium Hydroxide (Magnesium Hydroxide Susp 30 Ml Udc) 30 ml PO DAILY PRN PRN Reason: Constipation Stop: 04/13/24 20:45 Mirtazapine (Mirtazapine Tab 15 Mg Tab) 15 mg PO HS KANU Stop: 04/13/24 21:59 Last Admin: 03/14/24 22:44 Dose: 15 mg Sodium Chloride (Sodium Chloride 0.65% Na Soln 45 Ml ([place])) 1 - 2 sprays NA PRN PRN PRN Reason: Nasal Dryness/Congestion Stop: 04/13/24 20:45
[2024-03-15] MEDS: DOXYCYCLINE HYCLATE 50 MG CAP PO SCH (12:16)
[2024-03-15] MEDS: ARIPIprazole 1 MG/ML ORAL SOLN 150 ML BTL PO SCH (12:16)
[2024-03-15] MEDS: TRETINOIN 0.05% TOP SCH (21:40)
[2024-03-15] MEDS: MIRTAZAPINE TAB 15 MG TAB PO SCH (21:40)
[2024-03-16 08:51] LABS: Chol HDL Ratio 3.2 (0-5)
--- NOTE | 2024-03-16 09:05 | Psychiatric Progress Note ---
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 Diagnostically consistent with major depressive disorder vs atypical depression as well as generalized anxiety disorder, OCD and ASD. Also wonder about possibility for cluster B traits vs BPD component. A: Mood improving a bit, SI lessening which he attributes to the change in routine. Reviewed labwork-HbA1c normal, TGs elevated, cholesterol normal. Safe to continue with Abilify and will titrate to address ongoing OCD, mood symptoms. Reviewed [place] BPD screen, negative for BPD but positive for some challenges with emotional regulation. CAMS notable for rating his overall risk of suicide as 2/ 5 (1 is lowest risk) and wish to live and wish to as equal at 4/8 (0 is not at all, 8 is very much). rated multiple reasons for living (promise to a friend to live, getting to move to exciting places, doing more things with friends, be here for family, receive more hugs and love) but also reasons for dying (sensory anxieties feel monumental, overwhelmed by end of college, rejection of identity/sexuality/ethnicity, unrequited feelings for his friend who is straight). He feels the number one thing that would help him no longer be suicidal would be "developing some coping techniques". processed that IOP would be best modality to develop a lot of coping skills and practice using them with support if and when challenges come up. Also processed likely impact of transition and anticipation of college ending which brings up emotions of excitement but also feels overwhelming and daunting given his difficulty with change and fears anticipating changes to come. MNPR-due to difficulty with interruption with routines, significant discomfort and panic attacks with transitions/changes Overall, I spent a total of 50 minutes on this case including meeting with the patient, reviewing the chart, nursing report, multidisciplinary team meeting, orders, and documentation. (1) Depression: (2) Suicidal ideations: (3) Generalized anxiety disorder with panic attacks: (4) Autism spectrum disorder: (5) Obsessive compulsive disorder: Plan 03/16/2024: -Increase abilify to 5mg daily 03/15/2024: The patient was admitted to the [facility] ([facility] inpatient mental health unit) on q15 min checks (behavioral with suicide precautions) for safety. The patient will participate in group, recreational, and milieu therapies and will be offered additional individual and family sessions as clinically appropriate. -Medications: * Continue mirtazapine 15mg HS * Start abilify 2.5mg daily * Discontinue Wellbutrin * Vistaril prn for anxiety -Labwork: * HBA1c * Fasting Lipid Panel * Vit D * Vit B12 -[place] BPD screening Inventory Assets Strengths: supportive relationships, willing to get treatment Needs: safety and stabilization, medication adjustment, additional coping skills, increased outpatient services Suicide Risk Level Suicide Risk Level: High-Moderate (q15 min suicide checks) (SI with plan and intent prior to hospitalization but denies plan for hospital, SI lessening, feels safe in the hospital, feels able to ask for support) Risk Factors Assessment Male: Yes : No Do You Have Access To A Gun?: No Health Problems: No Mental Health Diagnoses: Yes Substance Use Disorders: No Previous Attempt: No Previous Psychiatric Hospitalization: No Hopelessness: Yes Protective Factors Assessment Employed: Yes Stable Relationships: Yes Supportive Family: Yes Good Rapport with Provider: Yes (therapist and PCP) Interval History Identifying Information KALEB RIVERA is a 23-year-old 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 Chief Complaint "Doing ok today". Review of Systems Sleep Information Total Hours of Sleep: 6 Meal Information Percent Meal Consumed - Breakfast: 100 Percent Meal Consumed - Lunch: 100 Percent Meal Consumed - Dinner: 100 Subjective Subjective Patient was seen & assessed and interval progress reviewed with treatment team. Engaged in groups. Rigid with the structure, routine, wanting to follow the rules. Parents visited on Saturday which went well. Last evening reported feeling bored. Today he reports some improvement in mood and less SI which he attributes to "the change in routine and being here is a good reset button". Notes he had an "anxious spell" overnight but eventually was able to fall back asleep. Denies any medication side effects, he'd like to increase the Abilify to continue to target OCD, anxiety, depression. Remains uninterested in SSRI trial. Discussed benefits of IOP to develop more coping skills such as CBT/DBT/mindfulness. Reviewed symptoms questionnaires and discussed CAMS. Physical Exam Psychiatric Orientation: alert and oriented x 3 Apperance: appropriately dressed and appropriately groomed Eye Contact: good eye contact Motor Behavior: no abnormal motor movements Speech: normal rate/rhythm/volume of speech Affect: + constricted affect Mood: + depressed mood and + anxious mood Thought Process: + circumstantial thought process Thought Content: reality based without delusions Suicidal Thoughts: denies suicidal intent; + reports suicidal thoughts (lessening since yesterday) and + reports suicidal plan (none for hospital, multiple for outside hospital) Homicidal Thoughts: denies homicidal thoughts Hallucinations: no auditory hallucinations and no visual hallucinations Cognition: recent memory grossly intact, remote memory grossly intact, attention grossly intact and language grossly intact Estimated Intelligence: consistent with education level Insight: + fair insight Judgment: + limited judgement Vital Signs (Past 24 Hours) Last Vital Signs Temp 36.9 C 03/16/24 06:45 Pulse 71 03/16/24 06:46 Resp 16 03/16/24 06:45 BP 127/73 03/16/24 06:46 Pulse Ox 97 03/15/24 06:00 O2 Del Method Room Air 03/15/24 06:00 Results & Data ([facility]) Laboratory Results Laboratory Results - last 24 hr 03/16/24 07:46 Estimat Average Glucose Pending Hemoglobin A1c Pending Triglycerides 175 H Cholesterol 136 LDL Cholesterol, Calc 58 VLDL Cholesterol, Calc 35 H HDL Cholesterol 43 Cholesterol/HDL Ratio 3.2 Vitamin B12 Pending 25-OH Vitamin D Total Pending Current Inpatient Medications Current Inpatient Medications: Current Inpatient Medications Acetaminophen (Acetaminophen 325 Mg Tab) 650 mg PO Q4H PRN PRN Reason: Headache or Minor Fever Stop: 04/13/24 20:45 Al Hydrox/Mg Hydrox/Simethicone (Aluminum/Magnesium Susp 30 Ml Udc) 30 ml PO Q4H PRN PRN Reason: GI Upset Stop: 04/13/24 20:45 Aripiprazole (Aripiprazole 5 Mg Tab) 2.5 mg PO DAILY KANU Stop: 04/15/24 08:59 Bismuth Subsalicylate (Bismuth Subsalicylate 262 Mg Chew) 2 tab PO Q30M PRN PRN Reason: Loose Stool/Diarrhea Stop: 04/13/24 20:45 Doxycycline Hyclate (Doxycycline Hyclate 50 Mg Cap) 50 mg PO DAILY KANU Stop: 04/14/24 10:44 Last Admin: 03/15/24 12:16 Dose: 50 mg Hydroxyzine HCl (Hydroxyzine Hcl 25 Mg Tab) 50 mg PO HSZ PRN PRN Reason: Insomnia Stop: 04/13/24 20:45 Hydroxyzine HCl (Hydroxyzine Hcl 25 Mg Tab) 25 mg PO Q4H PRN PRN Reason: Anxiety Stop: 04/13/24 20:45 Magnesium Hydroxide (Magnesium Hydroxide Susp 30 Ml Udc) 30 ml PO DAILY PRN PRN Reason: Constipation Stop: 04/13/24 20:45 Mirtazapine (Mirtazapine Tab 15 Mg Tab) 15 mg PO HS KANU Stop: 04/14/24 21:59 Last Admin: 03/15/24 21:40 Dose: 15 mg Tretinoin Cream 0.05 %~Non-Formulary Patient's Own Med 1 each TOP HS KANU Stop: 04/14/24 21:59 Last Admin: 03/15/24 21:40 Dose: 1 each Sodium Chloride (Sodium Chloride 0.65% Na Soln 45 Ml ([place])) 1 - 2 sprays NA PRN PRN PRN Reason: Nasal Dryness/Congestion Stop: 04/13/24 20:45 Mental Health & Subst Abuse Tx Therapist Name of Therapist: Foster Kim Hotel Front Office Manager Name of Hotel Front Office Manager: n/a Post Discharge Appointments Primary Care Physician Name Of Family Doctor/PCP: Dr. Aaron Parsons (1) Depression Depression Type: unspecified Qualified Code(s): F32.A - Depression, unspecified
[2024-03-16] MEDS: ARIPiprazole 5 MG TAB PO SCH (09:13)
[2024-03-16 09:48] LABS: Estimated Average Glucose 103 mg/dl; Hemoglobin A1C 5.2 % (4.5-5.6)
[2024-03-17] MEDS: CHOLECALCIFEROL 25 MCG (1000 UNITS) TAB PO SCH (08:55)
--- NOTE | 2024-03-17 08:58 | Psychiatric Progress Note ---
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 Diagnostically consistent with major depressive disorder vs atypical depression as well as generalized anxiety disorder, OCD and ASD. Also wonder about possibility for cluster B traits vs BPD component. A: Mood continues to slowly but steadily improve. Tolerating medication adjustments so far. Discussed recommendation to reconsider IOP if his symptoms worsen or do not improve with increased frequency of outpatient therapy which he is agreeable to doing. MNPR-due to difficulty with interruption with routines, significant discomfort and panic attacks with transitions/changes Overall, I spent a total of 40 minutes on this case including meeting with the patient, reviewing the chart, nursing report, multidisciplinary team meeting, orders, and documentation. (1) Depression: (2) Suicidal ideations: (3) Generalized anxiety disorder with panic attacks: (4) Autism spectrum disorder: (5) Obsessive compulsive disorder: Plan 03/17/2024: Continue current medications and tx plan 03/16/2024: -Increase abilify to 5mg daily 03/15/2024: The patient was admitted to the [facility] ([facility] mental health unit) on q15 min checks (behavioral with suicide precautions) for safety. The patient will participate in group, recreational, and milieu therapies and will be offered additional individual and family sessions as clinically appropriate. -Medications: * Continue mirtazapine 15mg HS * Start abilify 2.5mg daily * Discontinue Wellbutrin * Vistaril prn for anxiety -Labwork: * HBA1c * Fasting Lipid Panel * Vit D * Vit B12 -[place] BPD screening Inventory Assets Strengths: supportive relationships, willing to get treatment Needs: safety and stabilization, medication adjustment, additional coping skills, increased outpatient services Suicide Risk Level Suicide Risk Level: Moderate (q15 min suicide checks) (SI with plan and intent prior to hospitalization but now denies SI, mood improving, feels safe in the hospital, feels able to ask for support) Risk Factors Assessment Male: Yes : No Do You Have Access To A Gun?: No Health Problems: No Mental Health Diagnoses: Yes Substance Use Disorders: No Previous Attempt: No Previous Psychiatric Hospitalization: No Hopelessness: Yes Protective Factors Assessment Employed: Yes Stable Relationships: Yes Supportive Family: Yes Good Rapport with Provider: Yes (therapist and PCP) Interval History Identifying Information KALEB RIVERA is a 23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 Chief Complaint "Well". Review of Systems Sleep Information Total Hours of Sleep: 6.5 Meal Information Percent Meal Consumed - Breakfast: 100 Percent Meal Consumed - Lunch: 100 Percent Meal Consumed - Dinner: 100 Subjective Subjective Patient was seen & assessed and interval progress reviewed with nursing and social work. Showered, attending groups, [facility] option for [facility]. He has decided he prefers to increase frequency of outpatient therapy and then do IOP if this doesn't offer him enough support. He reports sleeping well without any anxiety overnight. His mood is "well". He denies any medication side effects except possibly some mild sedation from Abilify but he prefers to continue with qAM dosing for now. He notes 'I think I'm continuing to do better". Physical Exam Psychiatric Orientation: alert and oriented x 3 Apperance: appropriately dressed and appropriately groomed Eye Contact: good eye contact Motor Behavior: no abnormal motor movements Speech: normal rate/rhythm/volume of speech Affect: + constricted affect Mood: + depressed mood (lessening) and + anxious mood Thought Process: + circumstantial thought process Thought Content: reality based without delusions Suicidal Thoughts: denies suicidal thoughts, denies suicidal plan and denies suicidal intent Homicidal Thoughts: denies homicidal thoughts Hallucinations: no auditory hallucinations and no visual hallucinations Cognition: recent memory grossly intact, remote memory grossly intact, attention grossly intact and language grossly intact Estimated Intelligence: consistent with education level Insight: + fair insight Judgment: + fair judgement Vital Signs (Past 24 Hours) Last Vital Signs Temp 36.6 C 03/17/24 06:33 Pulse 79 03/17/24 06:34 Resp 16 03/17/24 06:33 BP 128/75 03/17/24 06:34 Pulse Ox 97 03/15/24 06:00 O2 Del Method Room Air 03/15/24 06:00 Results & Data ([facility]) Laboratory Results Laboratory Results - last 24 hr 03/16/24 07:46 Estimat Average Glucose 103 Hemoglobin A1c 5.2 Vitamin B12 217 25-OH Vitamin D Total 17.0 L Current Inpatient Medications Current Inpatient Medications: Current Inpatient Medications Acetaminophen (Acetaminophen 325 Mg Tab) 650 mg PO Q4H PRN PRN Reason: Headache or Minor Fever Stop: 04/13/24 20:45 Al Hydrox/Mg Hydrox/Simethicone (Aluminum/Magnesium Susp 30 Ml Udc) 30 ml PO Q4H PRN PRN Reason: GI Upset Stop: 04/13/24 20:45 Aripiprazole (Aripiprazole 5 Mg Tab) 2.5 mg PO DAILY KANU Stop: 04/15/24 08:59 Last Admin: 03/16/24 09:13 Dose: 2.5 mg Bismuth Subsalicylate (Bismuth Subsalicylate 262 Mg Chew) 2 tab PO Q30M PRN PRN Reason: Loose Stool/Diarrhea Stop: 04/13/24 20:45 Doxycycline Hyclate (Doxycycline Hyclate 50 Mg Cap) 50 mg PO DAILY KANU Stop: 04/14/24 10:44 Last Admin: 03/16/24 09:14 Dose: 50 mg Hydroxyzine HCl (Hydroxyzine Hcl 25 Mg Tab) 50 mg PO HSZ PRN PRN Reason: Insomnia Stop: 04/13/24 20:45 Hydroxyzine HCl (Hydroxyzine Hcl 25 Mg Tab) 25 mg PO Q4H PRN PRN Reason: Anxiety Stop: 04/13/24 20:45 Magnesium Hydroxide (Magnesium Hydroxide Susp 30 Ml Udc) 30 ml PO DAILY PRN PRN Reason: Constipation Stop: 04/13/24 20:45 Mirtazapine (Mirtazapine Tab 15 Mg Tab) 15 mg PO HS KANU Stop: 04/14/24 21:59 Last Admin: 03/16/24 21:18 Dose: 15 mg Tretinoin Cream 0.05 %~Non-Formulary Patient's Own Med 1 each TOP KANU Stop: 02/04/25 21:59 Last Admin: 03/16/24 21:18 Dose: 1 each Sodium Chloride (Sodium Chloride 0.65% Na Soln 45 Ml ([place])) 1 - 2 sprays NA PRN PRN PRN Reason: Nasal Dryness/Congestion Stop: 04/13/24 20:45 Vitamin D (Cholecalciferol 25 Mcg (1000 Units) Tab) 25 mcg PO QAM KANU Stop: 04/16/24 08:59 Mental Health & Subst Abuse Tx Psychiatrist Name of Psychiatrist: Gentry Hooper ([address] [facility] [id number]) Psychiatrist's Date Of Appointment With Psychiatric Provider: 03/31/24 Time of Appointment with Psychiatrist: 2:50PM - In Person Psychiatric Appointment Comment: Bring your Insurance card and Photo ID (24 hr cancellation policy) Therapist Name of Therapist: Foster Reilly Therapist's Museum Specialist Name of Museum Specialist: n/a Post Discharge Appointments Primary Care Physician Name Of Family Doctor/PCP: Dr. Aaron Parsons (1) Depression Depression Type: unspecified Qualified Code(s): F32.A - Depression, unspecified
[2024-03-17] MEDS: ARIPiprazole 5 MG TAB PO ONE (14:35)
[2024-03-18] MEDS: ARIPiprazole 5 MG TAB PO SCH ×2 (09:01→21:14)
--- NOTE | 2024-03-18 09:08 | Psychiatric Progress Note ---
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 Diagnostically consistent with major depressive disorder vs atypical depression as well as generalized anxiety disorder, OCD and ASD. Also wonder about possibility for cluster B traits vs BPD component. A: Mood improving, future-focused, some sedation from abilify so will switch to HS dosing tonight. MNPR-due to difficulty with interruption with routines, significant discomfort and panic attacks with transitions/changes Overall, I spent a total of 25 minutes on this case including meeting with the patient, reviewing the chart, nursing report, multidisciplinary team meeting, orders, and documentation. (1) Depression: (2) Suicidal ideations: (3) Generalized anxiety disorder with panic attacks: (4) Autism spectrum disorder: (5) Obsessive compulsive disorder: Plan 03/18/2024: -Switch abilify to 5mg HS 03/17/2024: Continue current medications and tx plan 03/16/2024: -Increase abilify to 5mg daily 03/15/2024: The patient was admitted to the [facility] ([facility] mental health unit) on q15 min checks (behavioral with suicide precautions) for safety. The patient will participate in group, recreational, and milieu therapies and will be offered additional individual and family sessions as clinically appropriate. -Medications: * Continue mirtazapine 15mg HS * Start abilify 2.5mg daily * Discontinue Wellbutrin * Vistaril prn for anxiety -Labwork: * HBA1c * Fasting Lipid Panel * Vit D * Vit B12 -[place] BPD screening Inventory Assets Strengths: supportive relationships, willing to get treatment Needs: safety and stabilization, medication adjustment, additional coping skills, increased outpatient services Suicide Risk Level Suicide Risk Level: Moderate (q15 min suicide checks) (SI with plan and intent prior to hospitalization but now denies SI, mood improving, feels safe in the hospital, feels able to ask for support) Risk Factors Assessment Male: Yes : No Do You Have Access To A Gun?: No Health Problems: No Mental Health Diagnoses: Yes Substance Use Disorders: No Previous Attempt: No Previous Psychiatric Hospitalization: No Hopelessness: Yes Protective Factors Assessment Employed: Yes Stable Relationships: Yes Supportive Family: Yes Good Rapport with Provider: Yes (therapist and PCP) Interval History Identifying Information KALEB RIVERA is a 23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 Chief Complaint "Doing ok". Review of Systems Sleep Information Total Hours of Sleep: 7 Meal Information Percent Meal Consumed - Breakfast: 100 Percent Meal Consumed - Lunch: 100 Percent Meal Consumed - Dinner: 100 Subjective Subjective Patient was seen & assessed and interval progress reviewed with treatment team. Had a good visit with his parents last evening. Rated his mood as positive and "goofy". Slept well. [place] tired yesterday after increased abilify and napped in the afternoon. Today prefers to switch dosing to HS. However, he's pleased that the medication seems to be helping his mood, he is feeling able to joke again and finding things fun. Excited in thinking about getting back to rock climbing and trying to make more plans with his friends. States "I felt pretty good" throughout yesterday evening and today. Physical Exam Psychiatric Orientation: alert and oriented x 3 Apperance: appropriately dressed and appropriately groomed Eye Contact: good eye contact Motor Behavior: no abnormal motor movements Speech: normal rate/rhythm/volume of speech Affect: euthymic affect Mood: + anxious mood (lessening); no depressed mood Thought Process: goal directed thought process Thought Content: reality based without delusions Suicidal Thoughts: denies suicidal thoughts (intermittent but significantly less, only brief passive fleeting thought), denies suicidal plan and denies suicidal intent Homicidal Thoughts: denies homicidal thoughts Hallucinations: no auditory hallucinations and no visual hallucinations Cognition: recent memory grossly intact, remote memory grossly intact, attention grossly intact and language grossly intact Estimated Intelligence: consistent with education level Insight: + fair insight Judgment: + fair judgement Vital Signs (Past 24 Hours) Last Vital Signs Temp 36.6 C 03/18/24 06:00 Pulse 70 03/18/24 06:47 Resp 16 03/18/24 06:00 BP 125/79 03/18/24 06:47 Pulse Ox 98 03/18/24 06:00 O2 Del Method Room Air 03/18/24 06:00 Results & Data ([facility]) Current Inpatient Medications Current Inpatient Medications: Current Inpatient Medications Acetaminophen (Acetaminophen 325 Mg Tab) 650 mg PO Q4H PRN PRN Reason: Headache or Minor Fever Stop: 04/13/24 20:45 Al Hydrox/Mg Hydrox/Simethicone (Aluminum/Magnesium Susp 30 Ml Udc) 30 ml PO Q4H PRN PRN Reason: GI Upset Stop: 04/13/24 20:45 Aripiprazole (Aripiprazole 5 Mg Tab) 5 mg PO DAILY KANU Stop: 04/17/24 08:59 Bismuth Subsalicylate (Bismuth Subsalicylate 262 Mg Chew) 2 tab PO Q30M PRN PRN Reason: Loose Stool/Diarrhea Stop: 04/13/24 20:45 Doxycycline Hyclate (Doxycycline Hyclate 50 Mg Cap) 50 mg PO DAILY KANU Stop: 04/14/24 10:44 Last Admin: 03/18/24 09:00 Dose: 50 mg Hydroxyzine HCl (Hydroxyzine Hcl 25 Mg Tab) 50 mg PO HSZ PRN PRN Reason: Insomnia Stop: 04/13/24 20:45 Hydroxyzine HCl (Hydroxyzine Hcl 25 Mg Tab) 25 mg PO Q4H PRN PRN Reason: Anxiety Stop: 04/13/24 20:45 Magnesium Hydroxide (Magnesium Hydroxide Susp 30 Ml Udc) 30 ml PO DAILY PRN PRN Reason: Constipation Stop: 04/13/24 20:45 Mirtazapine (Mirtazapine Tab 15 Mg Tab) 15 mg PO HS KANU Stop: 04/14/24 21:59 Last Admin: 03/17/24 20:56 Dose: 15 mg Tretinoin Cream 0.05 %~Non-Formulary Patient's Own Med 1 each TOP HS KANU Stop: 04/14/24 21:59 Last Admin: 03/17/24 20:56 Dose: 1 each Sodium Chloride (Sodium Chloride 0.65% Na Soln 45 Ml ([place])) 1 - 2 sprays NA PRN PRN PRN Reason: Nasal Dryness/Congestion Stop: 04/13/24 20:45 Vitamin D (Cholecalciferol 25 Mcg (1000 Units) Tab) 25 mcg PO QAM KANU Stop: 04/16/24 08:59 Last Admin: 03/18/24 09:01 Dose: 25 mcg Mental Health & Subst Abuse Tx Psychiatrist Name of Psychiatrist: Gentry Hooper (1949 [facility] [id number]) Psychiatrist's Date Of Appointment With Psychiatric Provider: 03/31/24 Time of Appointment with Psychiatrist: 2:50PM - In Person Psychiatric Appointment Comment: Bring your Insurance card and Photo ID (24 hr cancellation policy) Therapist Name of Therapist: Foster Reilly Therapist's Date of Therapist Appointment: 03/20/24 Time of Therapist Appointment: 12PM Therapy Appointment Comment: In Person Inverted Block Operator Name of Inverted Block Operator: n/a Post Discharge Appointments Primary Care Physician Name Of Family Doctor/PCP: Dr. Aaron Parsons (1) Depression Depression Type: unspecified Qualified Code(s): F32.A - Depression, unspecified
[2024-03-19 06:45] VITALS: TEMP 98.1; O2SAT 97
--- NOTE | 2024-03-19 08:55 | Discharge Summary ---
Date of Service March 19, 2024 History of Present Illness Miky presents for psychiatric admission for worsening depression and SI with multiple plans in the context of multiple psychosocial stressors including academics, unrequited feelings for his best friend, grief over the loss of this friendship, feeling excluded from his friend group, and experiencing barriers and obstacles within the LGBTQ community [place]. His depression has been "snowballing" and he started to "contemplate suicide and formulate a plan to do it but I figured it would be sometime around now and the beginning of the semester". He was visiting a friend a few days ago and shared his suicidal plan and his friend encouraged him to share this with his parents. Yesterday he was seen at the local Crisis center and they recommended he come to the hospital. He reports that his depression worsened a few months ago, leading to suicidal ideation and the formulation of a plan. He states that his suicidal thoughts were very intense yesterday morning after disclosing his potential plans, as he felt he had lost control over the one thing he had control over. Today, he reports his suicidal thoughts are a little less intense compared to yesterday. He identifies the onset of his depression in mid-to-late summer when his best friend got a girlfriend, when he'd had romantic feelings for him. Losing his ability to rely on his friend as his primary support also added to his stress/grief process and seemed to set off the depression. He was then coping a little better but new stressors including feeling excluded by his friends, COVID infection and then he struggled to manage other factors including academic stress. He can also get anxiety about his friends appearance changing due to his sensory anxieties which distracts from his ability to be in the moment. Additionally he feels impact of having multiple marginalized identities including LGBTQ and racial/ethnic minority and challenges this presents in meeting romantic partners. He endorses depressive symptoms including anhedonia (struggling to enjoy social situations), decreased motivation, self-guilt, hopelessness. He describes his depression as sometimes feeling like high-functioning depression, with the ability to still engage in academic work and social situations if he pushes himself and that he had been able to do this somewhat due to coping with distress by thinking about his plan and intent to soon. SI has been occurring over the last few months but intensifying to the point of having an intent to not live past "the first quarter of 2024". He hadn't finalized a method/plan because he wanted to avoid a means that could "fail" or cause pain. He had been researching means including helium asphyxiation, self-drowning, stabbing himself, jumping from a high place or driving his car off a hill or self poisoning (didn't seem as appealing because "there were too many factors that could go wrong or be very uncomfortable") into a tree (not into anyone else, would not have wanted to hurt anyone else). He also endorses symptoms of anxiety including generalized worries, shakiness, easily overwhelmed and panic attacks especially when a friend's appearance has changed/transitions that he fears may occur in the future. He reports experiencing sensory anxiety related to his Asperger's and sensory integration disorder, which has intensified and negatively impacted his ability to enjoy social situations. He notes that SI and having a plan and intent as an "escape plan" impacted some of his ability to socialize and rally recently as he wanted to leave his friends and family with "momentos" and good memories. He notes the idea of dying brought him comfort and aishwarya because "it's a way to stop the pain and never have anxiety again or worry again". He notes that "thinking about suicide was at times bringing about aishwarya and the depression tells me maybe you don't want help". He identifies that "I lack a lot of the concrete coping mechanisms". He endorses OCD symptoms including borderline cases of delusions related to his OCD. He is currently prescribed psychiatric medications of Wellbutrin XL 300mg daily (has been on this at higher dose for about a month, overall for three months; seems to help with mood at times "lower lows but also higher highs" and seems to emplify the emotions he has) and mirtazapine 15mg HS (since November, hard to say if it's helping or not but it has been helping him sleep). Psychiatric ROS notable for no current nor history of symptoms of kaiser, PTSD, nor eating disorder. Notes at times his sensory sensitivities have felt like almost a delusion at times and sometimes "borderline" psychosis from exacerbation of his OCD fixation and beliefs such as worrying he's hit something in his car. History of self-harm by scratching himself and continues to punching himself and been doing this several times per week. He describes feeling that he's recently been in a "dissociative state" with "nothing or empty" emotions with the exception of anxiety and struggles to be present with friends and this brings about self-guilt. He reports a high sex drive that interferes with his sleep. Target symptoms identified as: -anxiety -OCD -depression Physical Exam Vital Signs (Past 24 Hours) Last Vital Signs Temp 36.7 C 03/19/24 06:00 Pulse 77 03/19/24 06:43 Resp 16 03/19/24 06:00 BP 113/71 03/19/24 06:43 Pulse Ox 97 03/19/24 06:00 O2 Del Method Room Air 03/19/24 06:00 Principal Diagnosis Major Depressive Disorder with anxious distress Psychiatric Data See daily stay summary. In short, patient was engaged with the social/therapeutic milieu of the unit, safety was maintained and the patient was cooperative with care. Medication changes included discontinuation of Wellbutrin and initiation of abilify for depression, anxiety and OCD and they tolerated this well. Baseline labs of fasting glucose, fasting lipid profile, and weight were preformed (see labwork results below). Recommend repeat weight in one month. Recommend repeat fasting glucose, HbA1c and fasting lipid profile every 12 weeks and then annually. If symptoms arise recommend checking BP, EKG, prolactin level as clinically indicated or relevant. A support session was held and safety plan was completed prior to discharge. They participated in safety planning and in discussions about ways to seek support and recognizing warning signs and utilizing coping skills. Reviewed ways to have their safety plan and contacts easily available should thoughts of SI re-emerge in the future. Reviewed importance of seeking emergency care should SI intensify, worsen or should they feel unsafe in the future which they agree to do. On the day of discharge they stated their mood was "doing well, I feel ready to go" and remained future-oriented including spending time with his friends and family, going to the climbing gym, playing piano, relaxing and engaging in aftercare appointments for psychiatry, therapy and [employer] student care and advocacy. Reviewed recommendation for [facility] if symptoms worsen in the outpatient setting. Day of Discharge Assessment Today the patient voices readiness for discharge. They note improvement in mood and anxiety. They deny thoughts of harm to self or others. Thoughts are organized and they are clinically improved from admission. There is no evidence of psychosis. They improved in the hospital with support and medication adjustments. They agree to take medications as prescribed and keep follow-up appointments. At the time of the discharge they are deemed to be stable and appropriate for outpatient level of care. They are not deemed to be at imminent risk of harm to self or others. They are aware of emergency and crisis services. Knows to call 911 or go to nearest emergency care center if in a crisis which cannot be handled as an outpatient. Suicide risk assessment: Acute risk is low given improvement in mood and denial of SI, lack of access to lethal means, improvement in sleep, hopefulness and lessening of sensory concerns/anxiety. Chronic risk is moderate given some non-modifiable risk factors: psychiatric co-morbid diagnoses, hx self-harm, emotional reactivity, childhood trauma, but also with protective factors including student, good social support, sense of responsibility to family and social supports, outpatient care in place, positive coping skills, positive problem solving, willingness to engage with treatment and self-observation. Counseled on ways to reduce acute and chronic risk including engaging with outpatient providers, using safety plan if needed, utilizing supports, taking medication, and using coping skills. Modifiable risk factors of SI, anxiety and depression were addressed during hospitalization through development of new coping skills, support meeting, safety planning, and medication adjustments. Discharge physical exam: See admission H&P, MSE per above and day of discharge summary. Overall, I spent a total of 35 minutes on this case including meeting with the patient, reviewing the chart, nursing report, multidisciplinary team meeting, discharge orders, anticipatory planning, safety planning, risk assessment and documentation. Transition of Care Transition Of Care Record: was reviewed with the patient Advance Directives Advance Directives Information Provided: No Advance Directives: No Mental Health Advance Directive: No Advance Directives on File: No Living Will: No Power of Act English Tutor: No Advance Directives Reason:: Declines as Mental Health Visit. Suicide Risk Level Suicide Risk Level Comments: Acute risk is low given denial of SI, see further assessment above Risk Factors Assessment Male: Yes : No Do You Have Access To A Gun?: No Health Problems: No Mental Health Diagnoses: Yes Substance Use Disorders: No Previous Attempt: No Previous Psychiatric Hospitalization: No Hopelessness: No Protective Factors Assessment Employed: Yes Stable Relationships: Yes Supportive Family: Yes Good Rapport with Provider: Yes (therapist and PCP) Discharge Data Lab Results 03/14/24 03/14/24 03/14/24 16:10 16:18 Unknown WBC 5.59 RBC 4.72 Hgb 15.2 Hct 42.8 MCV 90.7 MCH 32.2 MCHC 35.5 RDW Std Deviation 38.3 RDW Coeff of Sharif 11.6 Plt Count 293 MPV 10.1 Immature Gran % (Auto) 0.4 Neut % (Auto) 65.6 Lymph % (Auto) 24.9 [place] % (Auto) 5.2 Eos % (Auto) 3.0 Baso % (Auto) 0.9 Neut # (Auto) 3.67 Lymph # (Auto) 1.39 [place] # (Auto) 0.29 Eos # (Auto) 0.17 Baso # (Auto) 0.05 Immature Gran # (Auto) 0.02 Sodium 137 Potassium 4.1 Chloride 103 Carbon Dioxide 28 Anion Gap 6 BUN 22 Creatinine 0.82 Est Cr Clr Drug Dosing 121.7 eGFR 127.37 BUN/Creatinine Ratio 26.8 H Glucose 127 H Estimat Average Glucose Hemoglobin A1c Calcium 9.2 Total Bilirubin 0.7 AST 15 ALT 11 Alkaline Phosphatase 75 Total Protein 7.2 Albumin 4.6 Globulin 2.6 Albumin/Globulin Ratio 1.8 Triglycerides Cholesterol LDL Cholesterol, Calc VLDL Cholesterol, Calc HDL Cholesterol Cholesterol/HDL Ratio Vitamin B12 25-OH Vitamin D Total TSH 0.912 Urine Color Yellow Urine Appearance Clear Urine pH 7.0 Ur Specific [place] 1.023 Urine Protein Negative Urine Glucose (UA) Negative Urine Ketones Negative Urine Blood Negative Urine Nitrite Negative Urine Bilirubin Negative Urine Urobilinogen Negative Ur Leukocyte Esterase Negative Salicylates < 3.0 L Urine Opiates Screen Neg Ur Methadone, Qual Neg Urine Fentanyl Screen Neg Acetaminophen < 3 L Urine Barbiturates Neg Ur Phencyclidine (PCP) Neg U Amphetamin/Meth Scrn Neg MDMA (Ecstasy) Screen Pos H U Benzodiazepines Scrn Neg Ur Cocaine Metabolite Neg U Marijuana (THC) Screen Neg Ethyl Alcohol mg/dL < 10.0 SARS-CoV-2, RNA, NAAT NEGATIVE 03/16/24 07:46 WBC RBC Hgb Hct MCV MCH MCHC RDW Std Deviation RDW Coeff of Sharif Plt Count MPV Immature Gran % (Auto) Neut % (Auto) Lymph % (Auto) [place] % (Auto) Eos % (Auto) Baso % (Auto) Neut # (Auto) Lymph # (Auto) [place] # (Auto) Eos # (Auto) Baso # (Auto) Immature Gran # (Auto) Sodium Potassium Chloride Carbon Dioxide Anion Gap BUN Creatinine Est Cr Clr Drug Dosing eGFR BUN/Creatinine Ratio Glucose Estimat Average Glucose 103 Hemoglobin A1c 5.2 Calcium Total Bilirubin AST ALT Alkaline Phosphatase Total Protein Albumin Globulin Albumin/Globulin Ratio Triglycerides 175 H Cholesterol 136 LDL Cholesterol, Calc 58 VLDL Cholesterol, Calc 35 H HDL Cholesterol 43 Cholesterol/HDL Ratio 3.2 Vitamin B12 217 25-OH Vitamin D Total 17.0 L TSH Urine Color Urine Appearance Urine pH Ur Specific [place] Urine Protein Urine Glucose (UA) Urine Ketones Urine Blood Urine Nitrite Urine Bilirubin Urine Urobilinogen Ur Leukocyte Esterase Salicylates Urine Opiates Screen Ur Methadone, Qual Urine Fentanyl Screen Acetaminophen Urine Barbiturates Ur Phencyclidine (PCP) U Amphetamin/Meth Scrn MDMA (Ecstasy) Screen U Benzodiazepines Scrn Ur Cocaine Metabolite U Marijuana (THC) Screen Ethyl Alcohol mg/dL SARS-CoV-2, RNA, NAAT Hospital Course (1) Depression: (2) Suicidal ideations: (3) Generalized anxiety disorder with panic attacks: (4) Autism spectrum disorder: (5) Obsessive compulsive disorder: Plan 03/19/2024: Tolerating medications well without side effects, feels safe and desires discharge 03/18/2024: -Switch abilify to 5mg HS 03/17/2024: Continue current medications and tx plan 03/16/2024: -Increase abilify to 5mg daily 03/15/2024: The patient was admitted to the [facility] ([facility] mental health unit) on q15 min checks (behavioral with suicide precautions) for safety. The patient will participate in group, recreational, and milieu therapies and will be offered additional individual and family sessions as clinically appropriate. -Medications: * Continue mirtazapine 15mg HS * Start abilify 2.5mg daily * Discontinue Wellbutrin * Vistaril prn for anxiety -Labwork: * HBA1c * Fasting Lipid Panel * Vit D * Vit B12 -[place]ollis BPD screening Mental Health & Subst Abuse Tx Psychiatrist Name of Psychiatrist: Gentry oHoper ([address] [facility] [address]) Psychiatrist's Date Of Appointment With Psychiatric Provider: 03/31/24 Time of Appointment with Psychiatrist: 2:50PM - In Person Psychiatric Appointment Comment: Bring your Insurance card and Photo ID (24 hr cancellation policy) Therapist Name of Therapist: Foster Callowayantwan Therapist's Date of Therapist Appointment: 03/20/24 Time of Therapist Appointment: 12PM Therapy Appointment Comment: In Person Stone Setter Apprentice Name of Stone Setter Apprentice: n/a Post Discharge Appointments Primary Care Physician Name Of Family Doctor/PCP: Dr. Aaron Parsons Other #1: Name of Aftercare Appointment: Student Care and Advocacy Post hospitalization meeting Phone Number of Aftercare Appointment: [phone] Date of Aftercare Appointment: 03/23/24 Time of Aftercare Appointment: 10AM Aftercare Appointment Comment: Zoom link will be sent to your [facility] email Contact Information Discharge Discharge Address: [address] [place] [address] Discharge Plan Discharge Items Patient Disposition: Home - Self-Care Reason For Visit: UNSPECIFIED DEPRESSIVE DISORDER Discharge Diagnosis: Major Depressive Disorder with anxious distress Activity: Resume your previous activity Non-emergency contact: Primary Care Provider, Psychiatrist and Therapist Call non-emergency contact if: you have any medication questions and your symptoms worsen Follow-up/Referrals: Tl Parsons [Primary Care Provider] - Diet: Regular Addtl Attending Provider Instructions: Optional mobile apps we discussed: -Suicide safety plan -Virtual Hope Box -Headspace $ SPECIAL CARE INSTRUCTIONS: 1. Follow through with your scheduled aftercare appointments. If unable to keep an appointment, please call to reschedule. 2. Take your medication only as prescribed. Medication should not be changed or stopped without the approval of your doctor. In the event of worsening symptoms or concerns about side effects, contact your doctor immediately. 3. Utilize new healthy coping skills, anger management skills, and stress management skills learned during your hospitalization. Journal feelings and process them with a support person. Identify stressors or situations that may result in relapse, deterioration or inappropriate behaviors and develop a plan to deal with those issues. 4. If your coping skills are ineffective and you are in crisis, contact your outpatient providers for direction. If unable to reach your providers, please call the [facility] CRISIS LINE AT , go to the [facility] walk-in center at [address], [address], [place], or go to the closest Emergency Room. 5. Avoid alcohol and un-prescribed drugs. 6. You have been provided with the Mental Health Advance Directives Pamphlet for your review. 7. Your condition is stable for discharge to outpatient level of care, but recovery is an ongoing process. Ifthoughts to harm yourself or others return, follow the safety plan developed during your stay. Planning for a safe return home includes securing weapons. Our treatment team recommends weaponsbe removed from the home until your outpatient provider reassesses your progress. In rare cases where the items themselvescannot be removed, guns and ammunitionshould be secured separatelyand keys stored by a reliable personoutside of the home. If you were admitted on an involuntary commitment, the police or other legal authorities may be involved in this process. AFTERCARE APPOINTMENTS: * Please call your insurance company prior to your scheduled appointment to confirm your aftercare providers are covered. Take your insurance information to your appointments. WHO TO CALL AND WHEN: Medical Emergencies: For questions or emergencies related to your hospital stay, please contact the Inpatient Behavioral Health Unit at [phone]. A auto body detailer is on-call 01/10 for the Behavioral Health Unit for emergencies At any time you feel your situation is an emergency, you may also call 911 immediately. National Crisis Hotline: 216 Pending Studies at Discharge: No Stand-Alone Forms: My [facility] Medications and DC Order Prescriptions: New hydroxyzine HCl 25 mg Tablet 25 mg PO DAILY PRN (Reason: anxiety/insomnia) 30 Days Qty: 30 0RF aripiprazole [Abilify] 5 mg Tablet 5 mg PO HS 30 Days Qty: 30 0RF cholecalciferol (vitamin D3) 25 mcg (1,000 unit) Capsule 25 mcg PO QAM Qty: 1 0RF Continued doxycycline hyclate 50 mg capsule 50 mg PO DAILY tretinoin 0.05 % cream 1 applic TOPICAL DAILY mirtazapine 15 mg tablet 15 mg PO HS cetirizine 10 mg Capsule 10 mg PO DAILY PRN (Reason: Allergy Symptoms) Discontinued bupropion HCl 300 mg tablet extended release 24 hr 300 mg PO DAILY Discharge Orders: Discharge Order (Routine); Ordered 03/19/24 Ordered By: Airam Carroll Admission Data Admit Date/Time: 03/14/24 20:10 Attending Provider: Airam Carroll Admit Provider: Airam Carroll Primary Care Provider: Tl Parsons Other Interventions: Discharge Summary Assessment (RN) Last Done: 03/19/24 10:14 Coding Level of Care Code 92775 D/C day mgmt > 30 min Diagnoses Depression F32.A Depression Type: unspecified Suicidal ideations R45.851 Generalized anxiety disorder with panic attacks F41.1; F41.0 Autism spectrum disorder F84.0 Obsessive compulsive disorder F42.9
[2024-03-19] MEDS ORDERED: DESTROY THIS MEDICATION ONE (10:13)
[2024-03-19 10:18] VITALS: BP 123/68; PULSE 93
[2024-03-19 17:47] LABS: MDA negative; MDEA negative; MDMA (Ecstasy) Urine, Confirm negative
== END 2024-03-19 13:35 | disposition home or self-care (01) | DRG 881 ==
LOC: ED 15:19 → 3S 20:23